=== PATIENT | female | born 1975 | race Hispanic/Latino ===

== ENCOUNTER 2017-11-11 18:33 | Emergency (ER) | payer OTHER | END 2017-11-11 19:16 | disposition left against medical advice (07) | LOC: ERS 18:33 | DX: Z53.21 Procedure and treatment not carried out due to patient leaving prior to being seen by health care provider (principal) ==

== ENCOUNTER 2017-11-12 08:08 | Emergency (ER) | payer OTHER, SELFPAY | END 2017-11-12 09:17 | disposition home or self-care (01) | LOC: ERS 08:08 | DX: J11.1 Influenza due to unidentified influenza virus with other respiratory manifestations (principal) | CPT/HCPCS: 99283 ==

== ENCOUNTER 2019-01-11 12:21 | Emergency (ER) | payer OTHER, SELFPAY ==
[2019-01-11] MEDS ORDERED: Lidocaine 1% w/Epinephrine 1:100K 20 ML VIAL ONE (12:51)
== END 2019-01-11 13:40 | disposition home or self-care (01) ==
LOC: ERS 12:21
DX: S01.112A Laceration without foreign body of left eyelid and periocular area, initial encounter (principal); W22.8XXA Striking against or struck by other objects, initial encounter
CPT/HCPCS: 12011; J2001

== ENCOUNTER 2019-01-21 13:17 | Emergency (ER) | payer OTHER, SELFPAY | END 2019-01-21 13:39 | disposition home or self-care (01) | LOC: ERS 13:17 | DX: S01.81XD Laceration without foreign body of other part of head, subsequent encounter (principal); X58.XXXD Exposure to other specified factors, subsequent encounter ==

== ENCOUNTER 2020-04-23 15:51 | Emergency (ER) | payer BC, OTHER ==
[2020-04-24 15:03] LABS: SARS-CoV-2 MS2 Positive; SARS-CoV-2 N Gene Negative; SARS-CoV-2 S Gene Negative; SARS-CoV-2 orf1ab Negative
== END 2020-04-23 16:14 | disposition home or self-care (01) ==
LOC: ERS 15:51
DX: Z20.828 Contact with and (suspected) exposure to other viral communicable diseases (principal)
CPT/HCPCS: 87635; 99283; U0003

== ENCOUNTER 2020-06-18 20:04 | Emergency (ER) | payer BC, OTHER, SELFPAY ==
[2020-06-19 14:10] LABS: SARS-CoV-2 MS2 Positive; SARS-CoV-2 N Gene Negative; SARS-CoV-2 S Gene Negative; SARS-CoV-2 by NAA Not Detected (NotDetected); SARS-CoV-2 orf1ab Negative
== END 2020-06-18 20:30 | disposition home or self-care (01) ==
LOC: ERS 20:04
DX: Z20.828 Contact with and (suspected) exposure to other viral communicable diseases (principal)
CPT/HCPCS: 87635; 99283; U0003

== ENCOUNTER 2021-01-07 12:17 | Emergency (ER) | payer OTHER, SELFPAY ==
[2021-01-07 22:08] LABS: SARS-CoV-2 PCR by NAA DETECTED (NotDetected)
== END 2021-01-07 13:10 | disposition home or self-care (01) ==
LOC: ERS 12:17
DX: U07.1 COVID-19 (principal)
CPT/HCPCS: 87635; 99283; U0003; U0005

== ENCOUNTER 2021-05-22 21:17 | Emergency (ER) | payer OTHER ==
[2021-05-23 16:58] LABS: SARS-CoV-2 PCR by NAA DETECTED (NotDetected)
== END 2021-05-22 23:05 | disposition home or self-care (01) ==
LOC: ERS 21:17
DX: H66.91 Otitis media, unspecified, right ear (principal)
CPT/HCPCS: 99283; U0003; U0005

== ENCOUNTER 2021-06-05 18:03 | Emergency (ER) | payer OTHER ==
[2021-06-06 08:14] LABS: SARS-CoV-2 PCR by NAA Not Detected (NotDetected)
== END 2021-06-05 19:42 | disposition home or self-care (01) ==
LOC: ERS 18:03
DX: Z20.822 Contact with and (suspected) exposure to COVID-19 (principal)
CPT/HCPCS: 99283; U0003; U0005